=== PATIENT | male | born 1960 | race American Indian/Alaskan Native ===

== ENCOUNTER 2020-01-29 09:41 | Emergency (ER) | payer OTHER ==
[2020-01-29] MEDS ORDERED: KETOROLAC 30 MG/1 ML INJ IV ONE (10:57)
[2020-01-29] MEDS ORDERED: SODIUM CHLORIDE 0.9% 1000 ML 1,000 ML IV ONE (10:57)
--- NOTE | 2020-01-29 10:57 | Emergency Department Report ---
ED General Adult HPI - General Chief complaint: Upper Respiratory Infection Stated complaint: WEAKNESS Time Seen by Provider: 01/29/20 10:41 Source: patient Mode of arrival: Ambulatory Limitations: No Limitations - History of Present Illness Initial comments: 59 yr old male with past medical history of HTN presents to ED c/o generalized weakness, generalized fatigue, decrease appetite, increase thirst and dry mouth. Patient states his symptoms started about 2 days ago. He also reports chills but denies any fever. He reports mild intermittent cough but otherwise he denies any rhinorrhea, nasal congestion or sore throat. He denies any nausea, vomiting, diarrhea or abdominal pain. He states he was sick recently with some similar symptoms but she is getting better. He states she did not get checked out. He denies any recent travel or known COVID 19 contacts. Patient states that 2 days while seating talking at work he had syncopal episode. He states he states to feel lightheaded and saw bright light and then passed out. He states this was witness by his co workes. EMS was called but he did not go to hospital. He states he was told syncopal episode was brief. He has not had more syncopal episodes since, nor any more flashing bright lights or lightheadedness since then. He denies any chest pain, shortness or breath, focal weakness, speech changes, numbness or tingling. MD Complaint: Generalized weakness, fatigue, decrease appetite -: Gradual (2 days ago) - Related Data Allergies Allergy/AdvReac Type Severity Reaction Status Date / Time No Known Allergies Allergy Unverified 01/29/20 10:00 ED Review of Systems ROS: Stated complaint: WEAKNESS Other details as noted in HPI Constitutional: chills, malaise, weakness. denies: fever ENT: denies: ear pain, throat pain Respiratory: cough. denies: shortness of breath, wheezing Cardiovascular: denies: chest pain, palpitations Gastrointestinal: denies: abdominal pain, nausea, vomiting, diarrhea Genitourinary: denies: urgency, dysuria Musculoskeletal: denies: back pain, joint swelling, arthralgia, myalgia Skin: denies: rash, lesions Neurological: weakness, other (syncope 2 days ago). denies: headache, paresthesias Psychiatric: denies: anxiety, depression ED Past Medical Hx - Past Medical History Previous Medical History?: No - Surgical History Past Surgical History?: Yes Hx Appendectomy: Yes - Social History Smoking Status: Never Smoker Substance Use Type: None ED Physical Exam - General Limitations: No Limitations General appearance: alert - Head Head exam: Present: atraumatic, normocephalic, normal inspection - Eye Eye exam: Present: normal appearance, PERRL, EOMI Pupils: Present: normal accommodation - ENT ENT exam: Present: normal exam, mucous membranes dry, TM's normal bilaterally - Neck Neck exam: Present: normal inspection, full ROM. Absent: meningismus - Respiratory Respiratory exam: Absent: normal lung sounds bilaterally, respiratory distress, wheezes, rales, rhonchi, stridor - Cardiovascular Cardiovascular Exam: Absent: regular rate, normal rhythm, normal heart sounds - GI/Abdominal GI/Abdominal exam: Present: soft. Absent: distended, tenderness - Back Exam Back exam: Present: normal inspection - Neurological Exam Neurological exam: Present: alert, oriented X3, CN II-XII intact - Psychiatric Psychiatric exam: Present: normal affect, normal mood - Skin Skin exam: Present: intact ED Course Vital Signs 01/29/20 01/29/20 09:50 11:29 Temperature 100.5 F H Pulse Rate 102 H Respiratory 18 17 Rate Blood Pressure 141/81 O2 Sat by Pulse 94 Oximetry - Reevaluation(s) Reevaluation #1: 01/29/20 13:46 Patient resting comfortably. Reports feeling better after fluids and Toradol. Patient is not toxic appearing, no signs of significant dehydration, he is not in any acute pain nor respiratory distress. He is awake alert and oriented x3. He is neurologically intact. EKG/labs/chest x-ray reviewed. He does have mild hyponatremia, and mild hyperglycemia but otherwise his work-up is unremarkable. Chest x-ray is normal. Troponin negative. given the low-grade temperature and patient symptoms, suspect that he could have a viral syndrome at this time. I discussed patient's results with him. I also discussed suspected diagnosis of a viral syndrome. Also recommend that he needs to stay hydrated by drinking lots of fluids. Informed him that he can follow-up with the local health department or [facility] drive through sites for COVID 19 testing. No further work-up or admission or emergent consult indicated at this time. Patient informed to follow-up with his primary care doctor as well. But if anything worsens to return to the ER. ED Medical Decision Making - Lab Data Result diagrams: 01/29/20 11:14 01/29/20 11:14 - EKG Data EKG shows normal: sinus rhythm Rate: normal (84) - EKG Data Interpretation: no acute changes, normal EKG Critical care attestation.: If time is entered above; I have spent that time in minutes in the direct care of this critically ill patient, excluding procedure time. ED Disposition Clinical Impression: Viral syndrome, Syncope Disposition: DC- TO HOME OR SELFCARE Is pt being admited?: No Does the pt Need Aspirin: No Condition: Stable Instructions: Viral Syndrome (ED), Syncope (ED) Additional Instructions: I recommend lots of rest, and fluids. You can take tylenol and or motrin for any pain or fever. I recommend you follow-up with local health department or [facility] drive-through for COVID-19 testing. I recommend close follow up with PCP in next couple days for reevaluation. Return to ED if worse. Referrals: [facility] [Primary Care Provider] - 3-5 Days Forms: Work/School Release Form(ED) Time of Disposition: 13:39
[2020-01-29 11:27] LABS: Basophils % (Auto) 0.1 % (0.0-1.8); Hematocrit 37.2 % (35.5-45.6); Lymphocytes % (Auto) 18.8 % (13.4-35.0); Mean Corpuscular HGB Conc 35 % (32-34); Mean Corpuscular Volume 86 fl (84-94); Monocytes # (Auto) 0.3 K/mm3 (0.0-0.8); Monocytes % (Auto) 5.7 % (0.0-7.3); Platelet Count 227 K/mm3 (140-440); Red Blood Count 4.33 M/mm3 (3.65-5.03); Red Cell Distribution Width 13.9 % (13.2-15.2)
--- NOTE | 2020-01-29 11:50 | XRay Report ---
CHEST 1 VIEW 01/29/2020 11:19 AM INDICATION / CLINICAL INFORMATION: COUGH/LOSS OF TASTE SMELL/WEAKNESS- DO PORTABLE. COMPARISON: None available. FINDINGS: SUPPORT DEVICES: None. HEART / MEDIASTINUM: No significant abnormality. LUNGS / PLEURA: No significant pulmonary or pleural abnormality. Calcified granuloma left midlung fie ld. No pneumothorax. ADDITIONAL FINDINGS: No significant additional findings. IMPRESSION: 1. No acute findings. 2. Prior granulomatous disease Signer Name: Gerardo Fuller MD Signed: 01/29/2020 11:46 AM Workstation Name: [id number]
[2020-01-29 12:06] LABS: BUN/Creatinine Ratio 10; Blood Urea Nitrogen 11 mg/dL (9-20); Calcium 8.8 mg/dL (8.4-10.2)
[2020-01-29 12:07] LABS: Alanine Aminotransferase 40 units/L (7-56); Albumin 3.9 g/dL (3.9-5); Hemolysis Index 1
[2020-01-29 13:27] LABS: Bilirubin,Urine NEG (Negative); Blood,Urine NEG (Negative); Color,Urine Yellow (Yellow)
[2020-01-29 14:19] VITALS: BP 130/85
== END 2020-01-29 14:21 | disposition home or self-care (01) ==
LOC: ED 09:41
DX: B34.9 Viral infection, unspecified (principal); R55 Syncope and collapse; Z90.49 Acquired absence of other specified parts of digestive tract
CPT/HCPCS: 36415; 71045; 80053; 81001; 83735; 84484; 85025; 93005; 96361; 96374; 99284; J1885; J7030